=== PATIENT | female | born 1975 | race Caucasian/White ===

== ENCOUNTER 2016-10-28 13:22 | Outpatient (CLI) | payer OTHER ==
--- NOTE | 2016-10-28 13:51 | DIAGNOSTIC IMAGING REPORT ---
PROCEDURE: MG BILATERAL SCREENING W/CAD INDICATION: Screening. Family history breast carcinoma (mother) TECHNIQUE: Bilateral CC and MLO digital views. COMPARISON: None. FINDINGS: Computer-aided detection applied. Moderately dense and mildly nodular parenchymal pattern. IMPRESSION: 1. Moderately dense and mildly nodular parenchymal pattern. Comparison with prior outside studies is recommended. These will be sent for. If and when these become available, an addendum can be issued this report. RESULT CODE: 0- Prior images needed. A. A negative report should not delay biopsy if a dominant or clinically suspicious mass is present. 10-15% of cancers are not identified by x-ray. B. A negative report may reinforce clinical impression. C. Adenosis and dense breasts may obscure an underlying neoplasm. D. False positive reports average 6-10%. E.. A yearly screening mammogram is recommended. A reminder letter will be scheduled.
[2017-01-06] MEDS ORDERED: ZYRTEC ALLERGY10 MG PO (14:51)
[2017-01-06] MEDS ORDERED: LAMOTRIGINE200 MG PO (14:51)
[2017-01-06] MEDS ORDERED: WELLBUTRIN SR150 MG PO (14:51)
[2017-01-06] MEDS ORDERED: CYMBALTA20 MG PO (14:52)
[2017-01-06] MEDS ORDERED: IBUPROFEN600 MG PO (14:52)
== END 2016-10-28 23:00 ==
LOC: MAM SRH 13:22
DX: Z12.31 Encounter for screening mammogram for malignant neoplasm of breast (principal); Z80.3 Family history of malignant neoplasm of breast

== ENCOUNTER 2016-11-03 22:10 | Emergency (ER) | payer OTHER ==
--- NOTE | 2016-11-04 01:38 | ED ORDER SUMMARY ---
..... Patient: ANNAMARIA WATSON OrderSheet [facility] VisitID: [id number] [place] [address] 41y, F Registration Date/Time: 11/03/2016 ORDER SHEET Weight: 90.7 kg (stated) Allergies: No Known Drug Allergy GENERAL ORDERS: Rapid Influenza Screen (Nasal Pharyngeal) (swab) Urgent (22:26 11/03/2016 Amanda CASTRO) (Ack 22:30 IJurca ER Tech1) (22:52 HSoule) Culture, Strep Screen Urgent (22:27 11/03/2016 Amanda CASTRO) (Ack 22:30 IJurca ER Tech1) (22:40 HSoule) Monoscreen Urgent (23:33 11/03/2016 Amanda CASTRO) (Ack 23:39 HSoule) (0:01 HSoule) POC Glucose (01:09 11/04/2016 Amanda CASTRO) (Ack 1:12 HSoule) (1:16 HSoule) MEDICATION ORDERS: Tylenol PO 650 mg (NOW) (02:21 11/04/2016 HSoule verbal order read back to Amanda CASTRO) (2:22 HSoule) Ibuprofen PO 600 mg (NOW) (02:21 11/04/2016 HSoule verbal order read back to Amanda CASTRO) (2:22 HSoule) IV FLUIDS: ORDER SHEET NOTES: [Electronically signed by Ashley Parker (02:11/04/2016)] [Electronically signed by Dolores Bess MD (14:11/09/2016)] [Electronically locked/signed by Ashley Parker (02:11/04/2016)]
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
--- NOTE | 2016-11-04 01:38 | ED ORDER SUMMARY ---
..... Patient: ANNAMARIA WATSON OrderSheet [facility] VisitID: [id number] [place] [address] 41y, F Registration Date/Time: 11/03/2016 ORDER SHEET Weight: 90.7 kg (stated) Allergies: No Known Drug Allergy GENERAL ORDERS: Rapid Influenza Screen (Nasal Pharyngeal) (swab) Urgent (22:26 11/03/2016 Amanda CASTRO) (Ack 22:30 IJurca ER Tech1) (22:52 HSoule) Culture, Strep Screen Urgent (22:27 11/03/2016 Amanda CASTRO) (Ack 22:30 IJurca ER Tech1) (22:40 HSoule) Monoscreen Urgent (23:33 11/03/2016 Amanda CASTRO) (Ack 23:39 HSoule) (0:01 HSoule) POC Glucose (01:09 11/04/2016 Amanda CASTRO) (Ack 1:12 HSoule) (1:16 HSoule) MEDICATION ORDERS: Tylenol PO 650 mg (NOW) (02:21 11/04/2016 HSoule verbal order read back to Amanda CASTRO) (2:22 HSoule) Ibuprofen PO 600 mg (NOW) (02:21 11/04/2016 HSoule verbal order read back to Amanda CASTRO) (2:22 HSoule) IV FLUIDS: ORDER SHEET NOTES: [Electronically signed by Ashley Parker (02:11/04/2016)] [Electronically signed by Dolores Bess MD (14:11/09/2016)] [Electronically locked/signed by Ashley Parker (02:11/04/2016)]
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
--- NOTE | 2016-11-09 14:27 | ED MAR SUMMARY ---
..... Medication Administration Record [facility] [address] [place] [address] Patient: ANNAMARIA WATSON Visit ID: [id number] 41y, F Weight: 90.7 kg Height/Length: 63 in BMI: 35.4 ALLERGIES: No Known Drug Allergy Given 11/04/2016 Ashley Parker, Medication Administered: TYLENOL [PO] (ACETAMINOPHEN), Dose: 650 mg Tablets PO. Medication Ordered: Tylenol PO 650 mg (NOW). Given 11/04/2016 Ashley Parker, Medication Administered: IBUPROFEN [PO], Dose: 600 mg PO. Medication Ordered: Ibuprofen PO 600 mg (NOW).
--- NOTE | 2016-11-09 14:27 | ED MED RECONCILIATION SUMMARY ---
Patient: ANNAMARIA WATSON Medication Reconciliation Report [facility] VisitID: [id number] [address] [place] [address] 41y, F Registration Date/Time: 11/03/2016 Weight: 90.7 kg Height/Length: 63 in. BMI: 35.4 ALLERGIES: No Known Drug Allergy The patient's Home Medications are listed below: CONTINUE TAKING THE FOLLOWING MEDICATIONS: LamoTRIgine Oral Wellbutrin Oral ZyrTEC Allergy Oral The source(s) of the original Home Medication information: patient The following Medications were given to the patient in the Emergency Department: Tylenol [PO] PO 650 mg, administered: 11/04/2016 1:40:00 AM Ibuprofen [PO] PO 600 mg, administered: 11/04/2016 1:40:00 AM The following Medications were prescribed to the patient: None.
--- NOTE | 2016-11-09 14:27 | ED MAR SUMMARY ---
..... Medication Administration Record [facility] [address] [place] [address] Patient: ANNAMARIA WATSON Visit ID: [id number] 41y, F Weight: 90.7 kg Height/Length: 63 in BMI: 35.4 ALLERGIES: No Known Drug Allergy Given 11/04/2016 Ashley Parker, Medication Administered: TYLENOL [PO] (ACETAMINOPHEN), Dose: 650 mg Tablets PO. Medication Ordered: Tylenol PO 650 mg (NOW). Given 11/04/2016 Ashley Parker, Medication Administered: IBUPROFEN [PO], Dose: 600 mg PO. Medication Ordered: Ibuprofen PO 600 mg (NOW).
--- NOTE | 2016-11-09 14:27 | ED MED RECONCILIATION SUMMARY ---
Patient: ANNAMARIA WATSON Medication Reconciliation Report [facility] VisitID: [id number] [address] [place] [address] 41y, F Registration Date/Time: 11/03/2016 Weight: 90.7 kg Height/Length: 63 in. BMI: 35.4 ALLERGIES: No Known Drug Allergy The patient's Home Medications are listed below: CONTINUE TAKING THE FOLLOWING MEDICATIONS: LamoTRIgine Oral Wellbutrin Oral ZyrTEC Allergy Oral The source(s) of the original Home Medication information: patient The following Medications were given to the patient in the Emergency Department: Tylenol [PO] PO 650 mg, administered: 11/04/2016 1:40:00 AM Ibuprofen [PO] PO 600 mg, administered: 11/04/2016 1:40:00 AM The following Medications were prescribed to the patient: None.
--- NOTE | 2016-11-09 14:27 | ED DISCHARGE INSTRUCTIONS ---
Patient: ANNAMARIA WATSON General Instructions [facility] VisitID: [id number] [place] [address] 41y, F Registration Date/Time: 11/03/2016 Acute viral syndrome INSTRUCTIONS Drink plenty of fluids. (Your tests for mono, strep, and influenza were all negative. Your blood sugar was normal. You most likely have one of the flu-like viruses that are going around right now. This will pass on its own in the next 1-2 weeks.). Warnings: GENERAL WARNINGS: Return or contact your physician immediately if your condition worsens or changes unexpectedly, if not improving as expected, or if other problems arise. Your Current Medications: CONTINUE TAKING THE FOLLOWING MEDICATIONS: LamoTRIgine Oral. Wellbutrin Oral. ZyrTEC Allergy Oral. Follow-up: Follow up with your doctor in one week if not better. Understanding of the discharge instructions verbalized by patient. ADDITIONAL INFORMATION Viral Syndrome (Adult) A viral illness may cause a number of symptoms. The symptoms depend on the part of the body that the virus affects. If it settles in the nose, throat, and lungs, it may cause cough, sore throat, congestion, and sometimes headache. If it settles in the stomach and intestinal tract, it may cause vomiting and diarrhea. Sometimes it causes vague symptoms like "aching all over," feeling tired, loss of appetite, or fever. A viral illness usually lasts1 to 2 weeks, but sometimes it lasts longer. In some cases, a more serious infection can look like a viral syndrome in the first few days of the illness. You may need anotherexam and additional teststo know the difference.Watch for the warning signs listed below. Home care Follow these guidelines for taking care of yourself at home: If symptoms are severe, rest at home for the first 2 to 3 days. Stay away from cigarette smoke - both your smoke and the smoke from others. You may useacetaminophen or ibuprofen for fever, muscle aching, and headache, unless another medicine was prescribed for this.If you have chronic liver or kidney disease or ever had a stomach ulcer or GI bleeding, talk with your doctor before using these medicinesNo one who is younger than 18 and ill with a fever should take aspirin. It may cause severe liver damage. Your appetite may be poor, so a light diet is fine. Avoid dehydration by drinking 8 to 12 8-ounce glasses of fluids each day. This may include water; orange juice; lemonade; apple, grape, and cranberry juice; clear fruit drinks; electrolyte replacement and sports drinks; and decaffeinated teas and coffee. If you have been diagnosed with a kidney disease, ask your doctor how much and what types of fluids you should drink to prevent dehydration. If you have kidney disease, drinking too much fluid can cause it build up in the your body and be dangerous to your health. Tyds-kuu-hrglgtx remedies won't shorten the length of the illness but may be helpful forcough, sore throat; and nasal and sinus congestion. Don't use decongestants if you have high blood pressure. Follow-up care Follow up with your health care provider if you do not improve over the next week. When to seek medical care Get prompt medical attention if any of these occur: Cough with lots of colored sputum (mucus) or blood in your sputum Chest pain, shortness of breath, wheezing, or difficulty breathing Severe headache; face, neck, or ear pain Severe, constant pain in the lower right side of your belly (abdominal) Continued vomiting (cant keep liquids down) Frequent diarrhea (more than 5 times a day); blood (red or black color) or mucus in diarrhea Feeling weak, dizzy, or like you are going to faint Extreme thirst Fever of 100.4 F (38 C) oral or higher, not better with fever medication Convulsion You have been given the following additional information: Viral Syndrome (Adult) (Electronically signed by Dolores Bess MD 11/09/2016 14:27)
[2017-01-06] MEDS ORDERED: LAMOTRIGINE200 MG PO (14:51)
[2017-01-06] MEDS ORDERED: WELLBUTRIN SR150 MG PO (14:51)
[2017-01-06] MEDS ORDERED: ZYRTEC ALLERGY10 MG PO (14:51)
[2017-01-06] MEDS ORDERED: IBUPROFEN600 MG PO (14:52)
[2017-01-06] MEDS ORDERED: CYMBALTA20 MG PO (14:52)
== END 2016-11-04 01:45 | disposition home or self-care (01) ==
LOC: ED SRH 22:10
DX: B34.9 Viral infection, unspecified (principal); Z79.899 Other long term (current) drug therapy
CPT/HCPCS: 90074; 90098; 90154; 90159; 91400; 98370

== ENCOUNTER 2016-11-04 14:00 | Outpatient (CLI) | payer OTHER ==
--- NOTE | 2016-11-04 15:14 | DIAGNOSTIC IMAGING REPORT ---
PROCEDURE: US COMPLETE PELVIC W/TRANSVAG INDICATION: PELVIC PAIN TECHNIQUE: Transabdominal and endovaginal hoffman scale and color Doppler sonographic images of the female pelvis were obtained. COMPARISON: None. FINDINGS: TRANSABDOMINAL SCANS: The uterus is of normal size 10.1 x 3.4 x 6.7 cm Kidneys are normal. TRANSVAGINAL SCANS: The uterus is anteverted. Myometrium is normal. The endometrium measures 19 mm. Endometrium is thickened and vascular with cystic areas and multiple echogenic areas. These echogenic areas may represent multiple polyps. The largest on the right measures 1.4 cm. Right ovary is normal measuring 3.1 x 2.4 x 2.7 cm The left ovary is normal measuring 3.4 x 2.0 x 2.6 cm. There is a prominent follicle on the left ovary measuring 2 cm. IMPRESSION: 1. Abnormal thick vascular endometrium containing multiple cysts and polyps.
[2017-01-06] MEDS ORDERED: LAMOTRIGINE200 MG PO (14:51)
[2017-01-06] MEDS ORDERED: ZYRTEC ALLERGY10 MG PO (14:51)
[2017-01-06] MEDS ORDERED: WELLBUTRIN SR150 MG PO (14:51)
[2017-01-06] MEDS ORDERED: CYMBALTA20 MG PO (14:52)
[2017-01-06] MEDS ORDERED: IBUPROFEN600 MG PO (14:52)
== END 2016-11-04 23:00 ==
LOC: US SRH 14:00
DX: N93.9 Abnormal uterine and vaginal bleeding, unspecified (principal); R93.8 Abnormal findings on diagnostic imaging of other specified body structures

== ENCOUNTER 2016-11-05 14:03 | Outpatient (CLI) | payer OTHER ==
--- NOTE | 2016-11-05 15:23 | DIAGNOSTIC IMAGING REPORT ---
PROCEDURE: MG UNILATERAL DIAG-LT W/CAD INDICATION: Follow-up left breast nodules. Family history breast carcinoma (mother). TECHNIQUE: True lateral digital view of the left breast. In addition, spot compression CC and MLO views were obtained of the medial central left breast (region of clinical concern). Finally, high-resolution left breast ultrasound was performed (18 mHz) with limited comparison images of the right breast. COMPARISON: Comparison is made to screening mammogram studies on 10/28/2016 and 09/02/2010. FINDINGS: MAMMOGRAM: Computer-aided detection applied. Confirmation of two small ovoid of 6 mm nodular densities in the central medial left breast. BREAST ULTRASOUND: Confirmation of two small 6 mm cysts in the medial left breast with a an adjacent 6 mm proteinaceous cyst (seen only on ultrasound). In addition, there is moderate retroareolar ductal ectasia of the left breast, containing proteinaceous material (suggests chronic ductal obstruction). IMPRESSION: 1. Confirmation of three small 6 mm ovoid nodular densities in the left breast compatible with cysts or proteinaceous cysts. 2. Moderate left retroareolar ductal ectasia, containing proteinaceous material (suggests chronic obstruction), although the patient has no history of hemorrhagic discharge. 3. While there is no evidence of underlying abnormality, early follow-up left breast ultrasound in 6 months is recommended to confirm stability or resolution. 4. Findings discussed with the patient. RESULT CODE: 3- Probably benign findings - initial short-interval follow-up suggested. A. A negative report should not delay biopsy if a dominant or clinically suspicious mass is present. 10-15% of cancers are not identified by x-ray. B. A negative report may reinforce clinical impression. C. Adenosis and dense breasts may obscure an underlying neoplasm. D. False positive reports average 6-10%. E.. A yearly screening mammogram is recommended. A reminder letter will be scheduled.
[2017-01-06] MEDS ORDERED: LAMOTRIGINE200 MG PO (14:51)
[2017-01-06] MEDS ORDERED: ZYRTEC ALLERGY10 MG PO (14:51)
[2017-01-06] MEDS ORDERED: WELLBUTRIN SR150 MG PO (14:51)
[2017-01-06] MEDS ORDERED: IBUPROFEN600 MG PO (14:52)
[2017-01-06] MEDS ORDERED: CYMBALTA20 MG PO (14:52)
== END 2016-11-05 23:00 ==
LOC: MAM SRH 14:03
DX: R92.2 Inconclusive mammogram (principal); N60.42 Mammary duct ectasia of left breast

== ENCOUNTER 2017-01-06 22:05 | Outpatient (CLI) | payer OTHER ==
[~2017-01-06 22:05] MED LIST: CYMBALTA20 MG PO; IBUPROFEN600 MG PO; LAMOTRIGINE200 MG PO; WELLBUTRIN SR150 MG PO; ZYRTEC ALLERGY10 MG PO
== END 2017-01-06 23:00 | disposition home or self-care (01) ==
LOC: LAB SRH 22:05
DX: Z01.812 Encounter for preprocedural laboratory examination (principal); N93.9 Abnormal uterine and vaginal bleeding, unspecified; N92.5 Other specified irregular menstruation
CPT/HCPCS: 90001; 90004; 90047; 90155; 90197; 90364; 91004; 92863; 95059

== ENCOUNTER 2017-01-06 22:07 | Outpatient (CLI) | payer OTHER | END 2017-01-06 23:00 | disposition home or self-care (01) | LOC: LAB SRH 22:07 | DX: Z01.812 Encounter for preprocedural laboratory examination (principal); N81.11 Cystocele, midline; N39.3 Stress incontinence (female) (male); Z11.3 Encounter for screening for infections with a predominantly sexual mode of transmission; Z86.59 Personal history of other mental and behavioral disorders | CPT/HCPCS: 90074; 90078; 90100; 90364; 92863; 94001; 94060; 95059; 99777 ==

== ENCOUNTER 2017-01-11 09:56 | Day surgery (SDC) | payer OTHER ==
--- NOTE | 2016-12-28 19:22 | HISTORY AND PHYSICAL ---
ADMITTED: 01/11/2017 CHIEF COMPLAINT: 1. Stress urinary incontinence 2. Enlarged uterus 3. Leiomyomatous uteri 4. Pelvic pain 5. Abnormal uterine bleeding HISTORY OF PRESENT ILLNESS: This is a shared patient with Dr. Cabral and see his history and physical for his procedures. The patient has had increasing problems with stress urinary incontinence, as well as bleeding abnormality. Uterus is found to be over 10 cm in size, 19 mm in thickness, showing endometrium is thickened and vascular, cystic areas with multiple echogenic areas and possible polyps, largest one measuring 1.4 cm. Ovaries appear normal. The patient has had evaluation also performed with Dr. Cabral. He has discussed his urologic workup with the patient and procedures he was going to do. Informed consent was given to the patient with regard to risks, benefits, complications, alternatives. Planned surgery is a laparoscopic-assisted vaginal hysterectomy and bilateral salpingectomy. No oophorectomy at this time. See Dr. Cabral's note for his workup and procedures. MEDICAL/SURGICAL HISTORY: Menstrual history: Normal early in life. Obstetric history: Five normal spontaneous vaginal deliveries. Contraception/ history: Noncontributory. Past surgical history: Tubal ligation, facial reconstruction, knee surgery. Medical history: Bipolar and psoriasis. MEDICATIONS: 1. Wellbutrin 150 mg per day. 2. Zyrtec 10 mg. 3. Lamotrigine 200 mg. 4. Cymbalta 20 mg. ALLERGIES: 1. NONE. 2. SENSITIVITIES: CATS. 3. MOLD. SOCIAL HISTORY: Negative for smoking, drinking, drugs. FAMILY HISTORY: Mother, father, siblings alive and well. Mother with hypertension, cancer of the breast in the mother, elevated cholesterol mother. REVIEW OF SYSTEMS: The patient is alert and oriented x3, fully aware of her complications, which are in nature, see above. Cardiovascular: No shortness of breath or chest pain. Gastrointestinal: Normal daily bowel movements. PHYSICAL EXAMINATION: VITAL SIGNS: 217 pounds of weight, height 5 foot 3, BMI 38, blood pressure 130/ 80, pulse, temperature normal. SKIN: Integument: Normal. HEENT: Hair normal. HEENT normal. BREASTS: Examination not done. LUNGS: Clear. HEART: Regular rate and rhythm. ABDOMEN: Benign. Truncal obesity. EXTREMITIES: No clubbing, cyanosis, erythema, edema. PELVIC: Normal pelvic examination. Pap smear normal. Endometrial biopsy performed. RECTAL: Examination declined. LAB/IMAGING: Laboratory is pending. IMPRESSION: 1. A 41-year-old 5, para 5, whose complaints are abnormal uterine bleeding. 2. Menorrhagia. 3. Stress urinary incontinence. PLAN: Laparoscopic-assisted vaginal hysterectomy. Risk and benefits explained, informed consent, see above. Bilateral salpingectomy, no oophorectomy. See Dr. Cabral's history and physical for procedures to be performed by him.
[~2017-01-11] VITALS: Ht 160 cm; Wt 90.7 kg
--- NOTE | 2017-01-11 13:16 | Provider's Discharge Care Plan ---
Problem, Goal, Plan Problem List 1. Stress incontinence Goals: Improve function Instructions: Follow up as directed, no lifting >10 lb for 6 wk
--- NOTE | 2017-01-11 13:16 | Provider's Discharge Care Plan ---
Problem, Goal, Plan Problem List 1. Stress incontinence Goals: Improve function Instructions: Follow up as directed, no lifting >10 lb for 6 wk
[2017-01-11 15:25] VITALS: BP 119/68
--- NOTE | 2017-01-11 23:34 | Operative Report ---
Operative Report Date of Surgery: 01/11/17 Preoperate Diagnosis: 1. POPQ st 2 anterior vaginal prolapse 2. stress incontinence Postoperative Diagnosis: same Surgeon: Lopez Cabral MD Procedure Performed: 1. Anterior colporrhaphy 2. Tension-free vaginal tape obturator sling and cystoscopy Anesthesia: General Indications: Her assessment to date includes: 1. Stress incontinence in female N39.3 (625.6): urodynamic stress incontinence. 2. Cystocele, midline N81.11 She is a candidate for an anterior repair and TVT-O sling. An LAVH that was to be performed for menorrhagia by Dr. Tracy was not authorized by her insurance company. However, she wished to undergo surgery for cystocele and urodynamic stress incontinence. The patient signed the consent form. She agreed with the risks, benefits, and alternatives to surgery. The risks included but not limited to recurrence or persistence of prolapse, recurrence of persistence of incontinence, development of voiding dysfunction, development of urinary urgency, urgency incontinence, frequency, and need for intermittent self-catheterization or prolonged indwelling catheterization, injury to other organs including bladder, bowel, nerves or blood vessels. Need for blood transfusion, need for temporary colostomy or urinary stenting. Development of vaginal scarring, dyspareunia, defecatory dysfunction, recurring pain, hematoma formation, urinary tract infection, cellulitis, necrotizing fascitis, and medical risks including myocardial infarction, stroke or VTE. She also understood the FDA warnings associated with the use of vaginal mesh (dysparunia, vaginal erosion, erosion into bowel/bladder/urethra, requiring further surgery to correct these complications). The patient understood the risks and benefits and consented to surgery.. Surgical Technique: The patient was brought to the operating room and was placed under general anesthesia. She was prepped and draped in the normal fashion for vaginal surgery with the legs in Yellofin stirrups. She was given a dose of IV ancef intraoperatively. She received 200 mg of oral pyridium 30 min prior to surgery. 1. Anterior colporrhaphy: Lidocaine 1% with 1/371422 epinephrine was infiltrated along the anterior vaginal wall mucosa. A midline vertical incision was made through the anterior vaginal wall and directed towards the anterior cervix. The uterus was relatively well supported with some mild descent. The vaginal wall was dissected off the underlying pubocervical and pubovesical fascia. The dissection was extended laterally to the ischial pubic rami. No paravaginal defects were noted. It was noted that the pubocervical and pubovesical fascial tissues were not deficient in nature. Apically, there was no enterocele noted. The cystocele was plicated in 2 layers, the first layer with 2-0 Vicryl suture in interrupted fashion, the second layer with 2-0 Tycron suture in an interrupted fashion. A small amount of excess anterior vaginal mucosa was excised. The vagina was then reapproximated using 3-0 Vicryl suture in a running locked fashion. 2. TVT-Obturator sling and cystoscopy. Lidocaine 1% with 1/061433 epinephrine was infiltrated along the anterior vaginal wall mucosa at the level of the mid urethra. A Midline vertical incision was made at that level, 2 periurethral tunnels were created with Metzenbaum scissors. Two stab incisions were created at the skin at the groin at a level 2 cm superior to the external urethral meatus and 2 cm lateral to the fold created between the vulva and thigh. A butterfly guide was then inserted into the right periurethral tunnel. The curved helical needle was inserted on top of the guide and rotated out to ipsilateral skin incision. The same procedure was performed on the contralateral side. Next the Buchanan catheter was removed. Cystoscopy was performed. There was no inadvertent penetration of the sling through the vagina , urethra or bladder. The bladder appeared normal. Both ureteral orifices were visualized and noted to be functional by the brisk spillage of pyridium-stained urine. The plastic sheaths of the sling were removed. The bladder was filled with 300 mL of sterile water. Using the Crede maneuver, sling tension was appropriately adjusted. Also a large Cristina clamp was allowed to easily pass behind the sling so that the sling was placed in a tension-free manner. The sling ends were cut at the level of the skin. The skin was reapproximated using Mastisol, Steri-Strips and band-aids. The vagina was reapproximated using 3-0 Vicryl suture in a running fashion The vagina was packed with KY-lubricated packing. An indwelling buchanan catheter was connected to straight drainage. The patient's hips were periodically deflexed during the case. There were no complications. The EBL was 50 ml. All sponges and instruments were accounted for. She was taken to the recovery room in stable condition.
== END 2017-01-11 16:13 | disposition home or self-care (01) ==
LOC: SCU SRH 09:56 → OR SRH 09:56
PROVIDERS: Obstetrics & Gynecology
PROC: 0TSD0ZZ Reposition Urethra, Open Approach (ICD-10-PCS; principal; 2017-01-11 11:30)
PROC: 0JQC0ZZ Repair Pelvic Region Subcutaneous Tissue and Fascia, Open Approach (ICD-10-PCS; principal; 2017-01-11 11:30)
DX: N39.3 Stress incontinence (female) (male) (principal); N81.11 Cystocele, midline; Z72.0 Tobacco use
CPT/HCPCS: 29229; 29240; 50004; 60001; 70002; 80575; 82956; 83125; 83468; 83628; 83630; 84038

== ENCOUNTER 2017-02-15 06:27 | Day surgery (SDC) | payer OTHER ==
--- NOTE | 2017-02-11 15:29 | HISTORY AND PHYSICAL ---
ADMITTED: 02/15/2017 CHIEF COMPLAINT: 1. Vaginal prolapse, stress urinary incontinence, abnormal uterine bleeding, pelvic pain HISTORY OF PRESENT ILLNESS: The patient was seen and scheduled outpatient with Dr. Cabral. Insurance clearance to do my part of the procedure, which is the removal of the uterus was not approved by insurance in time so Dr. Cabral did his part of the procedure. Today, the patient is over 30 days from the previous surgery and I have done a brief repeat of H and P. MEDICAL/SURGICAL HISTORY: OB history: 5 vaginal deliveries up to 8 pounds. Past history/surgical: Tubal ligation, facial reconstruction, knee surgery. Medical history is bipolar and psoriasis. MEDICATIONS: 1. Wellbutrin 150 a day. 2. Zyrtec 10 mg a day. 3. Lamotrigine 200 mg. 4. Cymbalta 20 mg. ALLERGIES: 1. CATS AND MOLD ARE BOTHERSOME TO THE PATIENT. SOCIAL HISTORY: Negative for tobacco, alcohol and drugs. FAMILY HISTORY: Basically negative, mother, father, siblings benign. REVIEW OF SYSTEMS: General: Alert and oriented x3, no significant problems. : Source of problems. Cardiovascular: No shortness of breath or chest pain. Gastrointestinal : Daily bowel movements. PHYSICAL EXAMINATION: VITAL SIGNS: Weight 217, 5 feet 3 inches, 132/80, pulse and temperature normal. SKIN/HAIR/INTEGUMENT: Normal. HEENT: Grossly intact. BREASTS: Exam not done. LUNGS: Clear. HEART: Regular rate and rhythm. ABDOMEN: Benign. EXTREMITIES: Benign, no clubbing, cyanosis, erythema or pitting edema. PELVIC/RECTAL: Continue to be the same, no change. LAB/IMAGING: Pending. IMPRESSION: 1. Pelvic pain 2. Uterine bleeding, prolapse, stress urinary incontinence. PLAN: Repeat discussion with hysterectomy.
[~2017-02-15] VITALS: Ht 160 cm; Wt 88.5 kg
[2017-02-15] VITALS (8 sets, daily range): BP systolic 115–137; BP diastolic 64–84
--- NOTE | 2017-02-15 06:54 | NUR ---
PRE OP INSTRUCTIONS GIVEN AND SAFETY ISSUES DISCUSSED PT HAD QUESTIONS ANSWERED PT CONFIRMED PROCEDURE PT VERIFIED SIGNATURE
--- NOTE | 2017-02-15 08:28 | NUR ---
CLITORAL PIERCING REMOVED PRIOR TO VAG PREP. PLACED IN A SPEC CUP, PATIENT STICKER PLACED ON IT AND SENT TO PACU WITH PT.
[2017-02-15] MEDS ORDERED: PERCOCET1 TA1 PO (11:35)
--- NOTE | 2017-02-15 11:37 | Provider's Discharge Care Plan ---
Problem, Goal, Plan Problem List 1. Post-operative pain Goals: Improve disease control Instructions: Follow up as needed
--- NOTE | 2017-02-15 11:37 | Provider's Discharge Care Plan ---
Problem, Goal, Plan Problem List 1. Post-operative pain Goals: Improve disease control Instructions: Follow up as needed
--- NOTE | 2017-02-15 11:54 | NUR ---
PT IS AWAKE AND ALERT. PT DENIES NAUSEA. PT STATES THAT HER PAIN IS "GETTING BETTER" AFTER FENTANYL 50 MCG IV X3. PT RESTING COMFORTABLY IN BED. ABDOMEN IS SOFT. DRESSING IS CLEAN AND DRY. PERIPAD IN CLEAN AND DRY. ROMAN CATHETERI IN PLACE, SECURED AND DRAINING SMALL AMOUNT OF PINK URINE. HH WAS DRAWN IN PACU PER ANESTESIA PROVIDER ORDER. MD TALKED TO PT IN PACU . QUESTIONS ANSWERED.
--- NOTE | 2017-02-15 13:16 | OPERATIVE REPORT ---
DATE OF SURGERY: 02/15/2017 SURGEON: Stan Barriga MD PREOPERATIVE DIAGNOSIS: 1. Bladder laceration POSTOPERATIVE DIAGNOSIS: 1. Bladder laceration PROCEDURE PERFORMED: 1. Laparoscopic repair of bladder laceration and intraoperative consultation ANESTHESIA: General. INDICATIONS: The patient is a 41-year-old woman undergoing a gynecologic procedure. She was having a laparoscopic-assisted hysterectomy and had undergone a previous urogynecologic procedure. During the procedure, an anterior defect was noted in the bladder with a Mejia visible through it. SURGICAL TECHNIQUE: The patient was in the operating room in a Trendelenburg position. I examined the laceration which is about a 4 cm laceration across the dome of the bladder. This appeared to be where there was some dissection required to take off adhesive disease. The mucosa was plainly visible. The laceration appeared amenable to repair without much risk to the trigone. A 2-0 braided absorbable suture was used for the repair. The repair started on the right side where there was a single suture placed in the corner and left to traction through a right-sided laparoscopic trocar to pull up on the defect. The remainder of the sutures were then placed directly and the knots tied with external knot pushing techniques going across the laceration. Careful inspection of the suture line revealed 2 remaining gaps and these were both closed with interrupted 2-0 absorbable sutures. At the conclusion, there did not appear to be any significant mucosal disruption left. The area was hemostatic. The managing service was advised to leave the Mejia catheter in for at least a couple of weeks and do a retrograde cystogram prior to discontinuing drainage.
--- NOTE | 2017-02-15 13:20 | OPERATIVE REPORT ---
DATE OF SURGERY: 02/15/2017 SURGEON: Jae Tracy MD ENVIRONMENTAL SERVICES AIDE: Samina Nguyen MD PREOPERATIVE DIAGNOSES: 1. Pelvic pain and vaginal prolapse, abnormal uterine bleeding, status post tension-free vaginal tape repair with Dr. Cabral POSTOPERATIVE DIAGNOSES: 1. Pelvic pain and vaginal prolapse, abnormal uterine bleeding, status post tension-free vaginal tape repair with Dr. Cabral 2. Consultation with repair, Dr. Barriga. PROCEDURE PERFORMED: 1. Four puncture operative laparoscopy, assisted vaginal hysterectomy 2. There was an incidental cystotomy in the midline of the bladder and Dr. Barriga was called in to repair, see Dr. Barriga's note. 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 Amaya, finished with Morenita, additional anesthesia was 20 subcutaneous 0.5% bupivacaine with 200,000 epinephrine. SURGICAL FINDINGS: Essentially normal on entry COMPLICATIONS: Incidental midline anterior cystotomy, repair with Dr. Barriga, see dictation. CONDITION: Good. ESTIMATED BLOOD LOSS: Less than 100 mL. FLUIDS: See anesthesia. IMPLANTS/GRAFTS: No blood, no grafts, no implants. PATHOLOGY SPECIMEN: Uterus in total and bilateral salpingectomy. No ovaries found, possible fragment of lateral wall mucosa. SURGICAL TECHNIQUE: The patient was prepped in the dorsal lithotomy position. A time-out was performed. Antibiotics had been given for 3 puncture sites, 11 in the midline, 5 on the right and 8 on the left were placed initially to do an intra-abdominal vaginal hysterectomy. We both dissected through the ligamentous the bladder from the salpinx and then down the side to the transverse cervical ligaments and to the uterosacral ligaments. At this point, Dr. Nguyen was dissecting laterally and anteriorly to separate the bladder and then dissected onto the LING cuff that had been placed in the vagina. This dissection went midline and somewhat low on the lower uterine cervix. At some point, we entered the vagina and there was loss of gas, we decided to complete with a routine vaginal hysterectomy removal. I went inferiorly in the midline and, since the vagina had been entered, I placed a retractor anteriorly and then dissected laterally and inferiorly. There was some leakage and some blood in the urine bag was noted. I had to continue to dissect the lateral duque and posteriorly and then removed the specimen. I took the vaginal cuff and closed it with 360-degree nature. At this point, we went back and re-insufflated gas into the abdomen and noticed there was at least a 2 cm rent in the midline near the area where the vagina was entered from the abdomen. Dr. Barriga was called and came in and did the repair, see his dictation. At this point, we re- irrigated the cuff and checked the vagina outside. All was healed and hemostatic. Gas was made to escape. The sponge, needle, tape and instrument count was correct x2. The probes had been removed. The gccagh-vq-ufafn was placed in the [address] Barriga had placed an additional 10 mm site between the midline suprapubic and left to tie knots for bladder repair. The patient tolerated the procedure and went to the recovery room in good condition. Sponge, needle, tape and instrument count was correct x2. The patient was to have the Mejia left in place for over 10 days and be given some prophylactic antibiotics.
--- NOTE | 2017-02-15 13:20 | OPERATIVE REPORT ---
DATE OF SURGERY: 02/15/2017 SURGEON: Jae Tracy MD AUTOMATIC PINSETTER ADJUSTER: Samina Nguyen MD PREOPERATIVE DIAGNOSES: 1. Pelvic pain and vaginal prolapse, abnormal uterine bleeding, status post tension-free vaginal tape repair with Dr. Cabral POSTOPERATIVE DIAGNOSES: 1. Pelvic pain and vaginal prolapse, abnormal uterine bleeding, status post tension-free vaginal tape repair with Dr. Cabral 2. Consultation with repair, Dr. Barriga. PROCEDURE PERFORMED: 1. Four puncture operative laparoscopy, assisted vaginal hysterectomy 2. There was an incidental cystotomy in the midline of the bladder and Dr. Barriga was called in to repair, see Dr. Barriga's note. ANESTHESIA: General endotracheal, [employer] Morenita follow up with Dr. Amaya, finished with Morenita, additional anesthesia was 20 subcutaneous 0.5% bupivacaine with 200,000 epinephrine. SURGICAL FINDINGS: Essentially normal on entry COMPLICATIONS: Incidental midline anterior cystotomy, repair with Dr. Barriga, see dictation. CONDITION: Good. ESTIMATED BLOOD LOSS: Less than 100 mL. FLUIDS: See anesthesia. IMPLANTS/GRAFTS: No blood, no grafts, no implants. PATHOLOGY SPECIMEN: Uterus in total and bilateral salpingectomy. No ovaries found, possible fragment of lateral wall mucosa. SURGICAL TECHNIQUE: The patient was prepped in the dorsal lithotomy position. A time-out was performed. Antibiotics had been given for 3 puncture sites, 11 in the midline, 5 on the right and 8 on the left were placed initially to do an intra-abdominal vaginal hysterectomy. We both dissected through the ligamentous the bladder from the salpinx and then down the side to the transverse cervical ligaments and to the uterosacral ligaments. At this point, Dr. Nguyen was dissecting laterally and anteriorly to separate the bladder and then dissected onto the LING cuff that had been placed in the vagina. This dissection went midline and somewhat low on the lower uterine cervix. At some point, we entered the vagina and there was loss of gas, we decided to complete with a routine vaginal hysterectomy removal. I went inferiorly in the midline and, since the vagina had been entered, I placed a retractor anteriorly and then dissected laterally and inferiorly. There was some leakage and some blood in the urine bag was noted. I had to continue to dissect the lateral duque and posteriorly and then removed the specimen. I took the vaginal cuff and closed it with 360-degree nature. At this point, we went back and re-insufflated gas into the abdomen and noticed there was at least a 2 cm rent in the midline near the area where the vagina was entered from the abdomen. Dr. Barriga was called and came in and did the repair, see his dictation. At this point, we re- irrigated the cuff and checked the vagina outside. All was healed and hemostatic. Gas was made to escape. The sponge, needle, tape and instrument count was correct x2. The probes had been removed. The [id number] was placed in the [address] Barriga had placed an additional 10 mm site between the midline suprapubic and left to tie knots for bladder repair. The patient tolerated the procedure and went to the recovery room in good condition. Sponge, needle, tape and instrument count was correct x2. The patient was to have the Mejia left in place for over 10 days and be given some prophylactic antibiotics.
--- NOTE | 2017-02-15 13:22 | NUR ---
1300- CLARIFIED PLAN OF CARE WITH DR. HURD. PT TO STAY ON ACUTE CARE FOR 4-6 HOUR. CALL HIM PRIOR TO DISCHARGE. PT MAY DC TO HOME IF PAIN IS CONTROLLED, AMBULATING, NO BLOOD IN URINE. LEAVE ROMAN IN AND DC TO HOME WITH ROMAN.
--- NOTE | 2017-02-15 18:40 | NUR ---
was told is aware of current lab values. pt in no distress. resting in bed now
--- NOTE | 2017-02-15 20:30 | NUR ---
WAS TOLD IS AWARE [facility]. SCDS ON PER ORDRES FOR DVT PREVENTION. IN NO DISTRESS.
--- NOTE | 2017-02-15 22:26 | NUR ---
CRISTINA SAYS SHE IS TAKING PO WELL. HAVE AN ORDER TO STOP IV FLUIDS IF TAKING PO WELL. SHE HAS BEEN DRINKING ALL DAY.
[2017-02-16 02:28] VITALS: BP 125/70
--- NOTE | 2017-02-16 05:45 | NUR ---
ASLEEP IN BETWEEN PAIN MEDS. 4 TROCAR SITES ON ABDOMEN DRY AND INTACT. TOLERATING GENERAL DIET. DENIES NAUSEA.
[2017-02-16 07:00] VITALS: BP 116/67
--- NOTE | 2017-02-16 09:15 | NUR ---
RECEIVED PT UP IN THE CHAIR, AWAKE, ALERT, ORIENTED, COHERENT, COOPERATIVE. V/S TAKEN AND RECORDED. ASSESSMENT DONE. PT COMPLAINT OF SURGICAL PAIN 8/10 LEVEL. DUE MEDS GIVEN. SEEN AND EXAMINED BY DR HURD EARLIER. WITH ORDERS MADE AND CARRIED OUT. FOR HOME TODAY, PT UNDERSTOOD. AT 1000, DISCHARGE INSTRUCS., PRECS., LEG BAG, GIVEN. INSTRUC PT HOW TO DRAIN HER CATHETER AND HOW TO TAKE CARE OF IT TOO. GOOD PERSONAL HYGIENE. ALL QUESTIONS AND CONCERS ANSWERED. WITH A BLACK ANKLET ON HER RT LET. WAITING FOR HER RIDE. NEEDS ATTENDED.
--- NOTE | 2017-02-16 10:30 | NUR ---
PT WENT HOME WITH ROMAN CATHETER. ASSISTED BY MS MENEZES, PT PREFERS TO AMBULATE. ENC AMBULATION, INCREASED IN FLUID INTAKE. RIDE IS WAITING AT THE LOBBY.
== END 2017-02-16 11:00 | disposition home or self-care (01) ==
LOC: OB SRH 06:27 → OR SRH 06:27 → ACUTE2 SRH 12:43 → OR SRH 02-16 11:00
PROVIDERS: Obstetrics & Gynecology
PROC: 0UT9FZZ Resection of Uterus, Via Natural or Artificial Opening With Percutaneous Endoscopic Assistance (ICD-10-PCS; principal; 2017-02-15 07:30)
PROC: 0UTC7ZZ Resection of Cervix, Via Natural or Artificial Opening (ICD-10-PCS; principal; 2017-02-15 07:30)
PROC: 0TQB4ZZ Repair Bladder, Percutaneous Endoscopic Approach (ICD-10-PCS; principal; 2017-02-15 07:30)
PROC: 0UT7FZZ Resection of Bilateral Fallopian Tubes, Via Natural or Artificial Opening With Percutaneous Endoscopic Assistance (ICD-10-PCS; principal; 2017-02-15 07:30)
DX: R10.2 Pelvic and perineal pain (principal); N93.8 Other specified abnormal uterine and vaginal bleeding; N80.0 Endometriosis of uterus

== ENCOUNTER 2017-03-01 09:37 | Outpatient (CLI) | payer OTHER ==
[~2017-03-01 09:37] MED LIST changes: +PERCOCET1 TA1 PO
--- NOTE | 2017-03-01 12:46 | DIAGNOSTIC IMAGING REPORT ---
PROCEDURE: XR CYSTOGRAM IN FLUORO INDICATION: CHECK BLADDER INTEGRITY AFTER REPAIR TECHNIQUE: 300 ml of 50% Isovue 370 was infused through the patient's existing Mejia catheter under fluoroscopic guidance (1.9 minutes, 1012.87 mGy). COMPARISON: None. FINDINGS: AP, bilateral oblique, and lateral views were obtained with subsequent post drainage images (total eight images). Urinary bladder is normal. There is no evidence of extravasation or leak. Post drainage images are normal. Findings were called to Dr. Jae Tracy and Dr. Stan Barriga. Mejia catheter was removed at there are request. IMPRESSION: 1. Normal cystogram and urinary bladder. No evidence of extravasation or leak. 2. Removal of the Mejia catheter (requested).
== END 2017-03-01 23:00 ==
LOC: US SRH 09:37
DX: N99.89 Other postprocedural complications and disorders of genitourinary system (principal)

== ENCOUNTER 2017-04-12 15:27 | Outpatient (CLI) | payer OTHER | END 2017-04-12 23:00 | LOC: LAB SRH 15:27 | DX: F10.20 Alcohol dependence, uncomplicated (principal); F11.20 Opioid dependence, uncomplicated | CPT/HCPCS: 90074; 90100; 90197; 95059 ==